=== PATIENT | male | born 1980 | race Asian ===

== ENCOUNTER 2022-06-19 10:31 | Emergency (ER) | payer SELFPAY ==
[2022-06-19] MEDS ORDERED: Sodium Chloride 0.9% 100 ML ONE (11:00)
[2022-06-19] MEDS ORDERED: Boostrix 0.5 ML (Tdap) VIAL (>/=7 yrs of age) ONE (11:00)
[2022-06-19] MEDS ORDERED: CEFAZOLIN 2 GM VIAL ONE (11:00)
[2022-06-19] MEDS ORDERED: Lidocaine 1% (PF) 30 ML VIAL ONE (11:03)
[2022-06-19] MEDS ORDERED: Bacitracin 1 PK ONE (11:53)
== END 2022-06-19 12:28 | disposition home or self-care (01) ==
LOC: MADERS 10:31
DX: S62.637B Displaced fracture of distal phalanx of left little finger, initial encounter for open fracture (principal); Z23 Encounter for immunization; W23.0XXA Caught, crushed, jammed, or pinched between moving objects, initial encounter
CPT/HCPCS: 26770; 90471; 90715; 96365; J2001; J3490